=== PATIENT | male | born 2000 | race African-American/Black ===

== ENCOUNTER 2019-05-28 12:17 | Emergency (ER) | payer SELFPAY ==
[~2019-05-28] VITALS: Ht 193 cm; Wt 96.6 kg
[2019-05-28 12:23] VITALS: Ht 193 cm; Wt 96.6 kg
[2019-05-28 14:32] VITALS: BP 148/85
== END 2019-05-28 14:32 | disposition home or self-care (01) ==
LOC: ED 12:17
DX: S83.91XA Sprain of unspecified site of right knee, initial encounter (principal); X58.XXXA Exposure to other specified factors, initial encounter; Y93.67 Activity, basketball; Y92.89 Other specified places as the place of occurrence of the external cause; Y99.8 Other external cause status